=== PATIENT | male | born 1995 | race Caucasian/White ===

== ENCOUNTER 2018-03-08 18:18 | Emergency (ER) | payer OTHER ==
[2018-03-08 19:00] VITALS: BP 133/74
--- NOTE | 2018-03-08 19:09 | UC ---
Upper Extremity HPI - HPI Summary HPI Summary: Patient presents emergency department reporting right hand pain. 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 Around 10:30 this morning he developed discomfort on the dorsum of his right hand. Patient is left-hand dominant. Patient states pain is worse with flexion of his wrist. Patient denies any paresthesias or hand weakness. No elbow or shoulder pain. Patient has not taken anything for pain. Patient has applied ice. Patient states pain is better a rest. Patient without previous injury to the same hand. Patient's medications reviewed this visit - History of Current Complaint Chief Complaint: UCUpperExtremity Stated Complaint: R WRIST PAIN Time Seen by Provider: 03/08/18 18:57 Hx Obtained From: Patient Onset/Duration: Gradual Onset - over 15-20 min Severity Initially: Moderate Severity Currently: Moderate Pain Intensity: 7 Pain Scale Used: 0-10 Numeric Location Of Pain: Is Discrete @ Aggravating Factor(s): Movement Alleviating Factor(s): Other: - no treatment taken - Allergies/Home Medications Allergies/Adverse Reactions: Allergies Allergy/AdvReac Type Severity Reaction Status Date / Time No Known Allergies Allergy Verified 03/08/18 19:00 Home Medications: Home Medications NK [No Home Medications Reported] 03/08/18 [History Confirmed 03/08/18] PMH/Surg Hx/FS Hx/Imm Hx Previously Healthy: Yes - Surgical History Surgical History: Yes Surgery Procedure, Year, and Place: Tonsillectomy - Family History Known Family History: Positive: Other - non contributory - Social History Occupation: Employed Full-time Lives: With Family Alcohol Use: Occasionally Substance Use Type: None Smoking Status (MU): Light Every Day Tobacco Smoker Type: Cigarettes Review of Systems Constitutional: Negative Musculoskeletal: Other: - right hand Neurological: Negative All Other Systems Reviewed And Are Negative: Yes Physical Exam - Summary Physical Exam Summary: Vital Signs Reviewed: Yes A+Ox3, no distress Eyes: Conjunctiva Clear ENT: Hearing grossly normal neck: supple Respiratory: Positive: No respiratory distress, No accessory muscle use Cardiovascular: skin color reflect adequate perfusion Musculoskeletal Exam: + abduct, extend right shoulder without difficulty + flex /ext elbow + pronate/supinate + flex/ext wrist with pain with extension + point tenderness mid wrist, dorsum no crepitus Neurological: Positive: Alert, ambulatory without difficulty + thumb up, a ok, finger spread, finger cross + gross sensation throughout Psychological: Positive: Normal Response To Family Skin: Positive: no rash, no ecchymosis no open wounds, abraison, edema Triage Information Reviewed: Yes Vital Signs: Initial Vital Signs Temp 99.1 F 03/08/18 18:55 Pulse 90 03/08/18 18:55 Resp 18 03/08/18 18:55 BP 133/74 03/08/18 18:55 Pulse Ox 98 03/08/18 18:55 Diagnostics - Radiology No standard instances Xray Interpretation: No Acute Changes - no fx noted Radiology Interpretation Completed By: ED Physician Re-Evaluation - Re-Evaluation First Eval Re-Evaluation Time: 19:58 Comment: reviewed xray with pt - aware will have radiology intpret tomorrow and call if discrepancy. splint for comfort. sports medicine referral. pt in agreement with plan Upper Extremity Course/Dx - Course Course Of Treatment: Patient with tenderness the dorsum of his right wrist. Patient states his throat before he was carrying lumber. Patient has any paresthesias. Vital signs stable. CSM is intact. Patient with point tenderness the dorsum of his right wrist. Patient's left hand dominant. Suspected tendinitis. We'll check imaging. Workmen's Comp. paperwork completed We will place patient in a splint. Ice. Motrin/Tylenol. Patient comfortable agreement with plan. - Differential Dx/Diagnosis Provider Diagnoses: right wrist pain Discharge - Sign-Out/Discharge Documenting (check all that apply): Patient Departure All imaging exams completed and their final reports reviewed: No - Discharge Plan Condition: Stable Disposition: HOME Patient Education Materials: Tendinitis (ED) Forms: *Work Release Referrals: No Primary Care Phys,NOPCP [Primary Care Provider] - [facility] [Provider Group] Additional Instructions: -wear splint for comfort and support. -apply (wrapped in a towel) 20 minutes at a time, 2-3 times a day -Okay to alternate ibuprofen (Advil, Motrin) and Tylenol every 3 hours for pain. Take with food. Do NOT take for more than 4-5 days. -your xrays were reviewed by the physician in the urgent care tonight. they will be read by a radiologist tomorrow. If the radiologist interprets your imaging differently, you will receive a call from a care maintenance team member - Contact the sports medicine office tomorrow to schedule a follow-up appointment. Contact your doctor or return with questions or concerns - Billing Disposition and Condition Condition: STABLE Disposition: Home
[2018-03-08] MEDS ORDERED: Ibuprofen TAB* 600 MG PO ONE (19:16)
--- NOTE | 2018-03-09 07:50 | RAD ---
HISTORY: pain dorsum right wrist COMPARISONS: None VIEWS: 3 , Frontal, lateral, and oblique views of the right wrist FINDINGS: BONE DENSITY: Normal. BONES: There is no displaced fracture. JOINTS: There is no arthropathy. ALIGNMENT: There is no dislocation. SOFT TISSUES: Unremarkable. OTHER FINDINGS: None. IMPRESSION: NO ACUTE OSSEOUS INJURY. IF SYMPTOMS PERSIST, RECOMMEND REPEAT IMAGING. R0
--- NOTE | 2018-03-09 09:45 | UC ---
- Progress Note Progress Note: images reviewed, no change Re-Evaluation - Re-Evaluation First Eval Re-Evaluation Time: 19:58 Comment: reviewed xray with pt - aware will have radiology intpret tomorrow and call if discrepancy. splint for comfort. sports medicine referral. pt in agreement with plan Discharge - Sign-Out/Discharge Documenting (check all that apply): Post-Discharge Follow Up All imaging exams completed and their final reports reviewed: Yes - Discharge Plan Condition: Stable Disposition: HOME Patient Education Materials: Tendinitis (ED) Forms: *Work Release Referrals: [facility] [Provider Group] No Primary Care Phys,NOPCP [Primary Care Provider] - Additional Instructions: -wear splint for comfort and support. -apply (wrapped in a towel) 20 minutes at a time, 2-3 times a day -Okay to alternate ibuprofen (Advil, Motrin) and Tylenol every 3 hours for pain. Take with food. Do NOT take for more than 4-5 days. -your xrays were reviewed by the physician in the urgent care tonight. they will be read by a radiologist tomorrow. If the radiologist interprets your imaging differently, you will receive a call from a care sales team leader - Contact the sports medicine office tomorrow to schedule a follow-up appointment. Contact your doctor or return with questions or concerns - Billing Disposition and Condition Condition: STABLE Disposition: Home
== END 2018-03-08 20:10 | disposition home or self-care (01) ==
LOC: UCCORT 18:18
DX: X50.0XXA Overexertion from strenuous movement or load, initial encounter (principal); Y93.89 Activity, other specified; Y92.89 Other specified places as the place of occurrence of the external cause; Y99.0 Civilian activity done for income or pay; F17.210 Nicotine dependence, cigarettes, uncomplicated; M25.531 Pain in right wrist
CPT/HCPCS: 99203; A9270-GY; G0463

== ENCOUNTER 2018-09-01 13:04 | Emergency (ER) | payer OTHER ==
[2018-09-01 14:31] VITALS: BP 104/50
--- NOTE | 2018-09-01 14:58 | UC ---
Respiratory Complaint HPI - HPI Summary HPI Summary: 23 yo male ill x 3 days CHAIDEZ/has felt feverish and had chills/mylagia, n/v (day one >day two, only one episode today) mild congestion cough no CP or SOB no ABD pain no UTI symptoms - History of Current Complaint Chief Complaint: UCGeneralIllness Stated Complaint: NAUSEA,HEADACHE,VOMITING Time Seen by Provider: 09/01/18 14:23 Hx Obtained From: Patient Onset/Duration: Gradual Onset, Lasting Days - 3 Timing: Constant Severity Initially: Moderate Severity Currently: Moderate Pain Intensity: 5 Pain Scale Used: 0-10 Numeric Character: Cough: Nonproductive Aggravating Factors: Nothing Alleviating Factors: Nothing Associated Signs And Symptoms: Positive: Fever - rakesh, Chills - Allergies/Home Medications Allergies/Adverse Reactions: Allergies Allergy/AdvReac Type Severity Reaction Status Date / Time No Known Allergies Allergy Verified 09/01/18 14:22 PMH/Surg Hx/FS Hx/Imm Hx Previously Healthy: Yes - Surgical History Surgical History: Yes Surgery Procedure, Year, and Place: Tonsillectomy - Family History Known Family History: Positive: Hypertension, Other - non contributory Negative: Cardiac Disease, Diabetes - Social History Alcohol Use: Occasionally Substance Use Type: None Smoking Status (MU): Light Every Day Tobacco Smoker Type: Cigarettes Amount Used/How Often: 5-6 cigarettes Review of Systems All Other Systems Reviewed And Are Negative: Yes Constitutional: Positive: Fever - rakesh, Chills, Fatigue Skin: Positive: Negative Eyes: Positive: Negative ENT: Positive: Nasal Discharge, Sinus Congestion Respiratory: Positive: Cough Cardiovascular: Positive: Negative Gastrointestinal: Positive: Vomiting, Nausea Genitourinary: Positive: Negative Motor: Positive: Negative Neurovascular: Positive: Negative Musculoskeletal: Positive: Myalgia Neurological: Positive: Headache Psychological: Positive: Negative Physical Exam Triage Information Reviewed: Yes Appearance: Well-Appearing, No Pain Distress, Well-Nourished Vital Signs: Initial Vital Signs Temp 99.3 F 09/01/18 14:23 Pulse 87 09/01/18 14:23 Resp 16 09/01/18 14:23 BP 104/50 09/01/18 14:23 Pulse Ox 98 09/01/18 14:23 Vital Signs Reviewed: Yes Eyes: Positive: Conjunctiva Clear ENT: Positive: Hearing grossly normal, Pharynx normal, Nasal congestion, TMs normal, Uvula midline. Negative: Nasal drainage, Trismus, Muffled voice, Hoarse voice, Sinus tenderness Neck: Positive: Supple, Nontender, No Lymphadenopathy Respiratory: Positive: Lungs clear, Normal breath sounds, No respiratory distress, No accessory muscle use Cardiovascular: Positive: RRR, No Murmur Abdomen Description: Positive: Nontender, No Organomegaly, Soft. Negative: CVA Tenderness (R), CVA Tenderness (L) Bowel Sounds: Positive: Present Musculoskeletal: Positive: ROM Intact, No Edema Neurological: Positive: Alert Psychological Exam: Normal Skin Exam: Normal UC Diagnostic Evaluation - Laboratory O2 Sat by Pulse Oximetry: 98 - normal/not hypoxic Diagnostic Studies Comment: UA: neg, Influenza- neg Respiratory Course/Dx - Differential Dx/Diagnosis Provider Diagnosis: Viral syndrome Discharge - Sign-Out/Discharge Documenting (check all that apply): Patient Departure All imaging exams completed and their final reports reviewed: No Studies - Discharge Plan Condition: Stable Disposition: HOME Prescriptions: Ondansetron TAB* [Zofran Tab*] 4 mg PO Q6H PRN #8 tab PRN Reason: Nausea Patient Education Materials: Viral Syndrome (ED) Forms: *Work Release Referrals: No Primary Care Phys,NOPCP [Primary Care Provider] - Additional Instructions: rest fluids tylenol or advil zofran if needed for nausea RECHECK FOR WORSENING SYMPTOMS RECHECK IF NOT BETTER IN 2 DAYS - Billing Disposition and Condition Condition: STABLE Disposition: Home
[2018-09-01 15:08] LABS: Influenza A Molecular NEGATIVE (Negative); Influenza B Molecular NEGATIVE (Negative)
[2018-09-01] MEDS: Ketorolac INJ* 30 MG/ML 1 ML VIAL IM ONE (15:32)
== END 2018-09-01 15:38 | disposition home or self-care (01) ==
LOC: UCCORT 13:04
DX: B34.9 Viral infection, unspecified (principal); R51 Headache; M79.10 Myalgia, unspecified site; R11.2 Nausea with vomiting, unspecified; R09.81 Nasal congestion; R05 Cough; F17.210 Nicotine dependence, cigarettes, uncomplicated
CPT/HCPCS: 81003; 99212; G0463; J1885